=== PATIENT | female | born 1940 | race Caucasian/White ===

== ENCOUNTER → 2018-07-28 | Outpatient (REF) | payer MEDICARE, BC ==
[~2018-07-28] MED LIST: ACIDOPHILU4 PO; ALL DAY10 MG; AMILORIDE5 MG; AMOXICILLIN/CL875 MG OR; BABY ASPIRIN81 MG PO; CARISOPRODOL350 MG; CELEBREX200 MG PO; CRANBERRY1 TA1; DIFLUCAN150 MG PO; FIBER CON625 MG OR; FLONASE SPRAY50 MC1; FLOVENT HFA220 MCG; FLUZONE SPLT1 M1 IM; FOSAMAX70 MG PO; LEVOXYL125 MCG OR; MULTIVITAM10 OR; NYSTATIN TOP; NYSTATIN100000 M1 OR; OMEPRAZOLE20 MG PO; PEDI DRI EX; PREDNISONE10 MG PO; RECLAST5 MG/100 M; SINGULAIR; SINGULAIR PO; TAM75CAP OR; TRAMADL/APAP PO; VITAMIN D35000 UNI1 OR; ZETIA10 MG PO; [UNRECOGNIZED DRUG - OTHER] OR
[2018-07-28 10:15] LABS: HEMATOCRIT 43.4 % (37.0-47.0); IMMATURE GRANULOCYTES 0.9 % (0.0-5.0); MEAN CELL VOLUME 88.2 fL CALC (80.0-100.0); MEAN CORPUSCULAR HGB 28.5 pG CALC (26.0-32.0); MEAN CORPUSCULAR HGB CONC 32.3 g/L CALC (32.0-36.0); NEUT# 3.65 thou/uL (2.00-7.15); RED BLOOD COUNT 4.92 mill/uL (4.20-5.60); RED CELL DISTRI WIDTH 13.4 % (11.5-15.5)
[2018-07-28 11:51] LABS: ALBUMIN 3.9 g/dL (3.2-5.0); ALKALINE PHOSPHATASE 65 u/l (38-126); ANION GAP 13 (6-22 (CALC)); BILIRUBIN, TOTAL 0.7 mg/dL (0.0-1.4); BUN 13 mg/dL (8-23); BUN/CREATININE RATIO 14 (12-20 (CALC)); CALCULATED LDLCHOLESTEROL 127 mg/dL (62-129 (CALC)); CARBON DIOXIDE 28 mmol/l (22-30); CHLORIDE 103 mmol/l (95-108); CHOLESTEROL HDL RATIO 3.6 (<4.4 (CALC)); GFR 54 ML/MIN (>=60 (CALC)); GFR FOR AFR.AMER. > 60 ML/MIN (>=60 (CALC)); HDL CHOLESTEROL 55 mg/dL (>=40); POTASSIUM 4.3 mmol/l (3.5-5.1); SGOT/AST 22 u/l (9-36); SODIUM 140 mmol/l (137-146); TOTAL CHOLESTEROL 200 mg/dl (0-199); TOTAL PROTEIN 6.5 g/dL (6.3-8.2); TOTAL TRIGLYCERIDES 92 mg/dl (30-149); VLDL CHOLESTROL 18 mg/dl (0-48 (CALC))
[2018-07-28 12:06] LABS: TSH, 3RD GENERATION 1.79 uIU/mL (0.47 - 4.68)
== END | disposition home or self-care (01) ==
LOC: LAB 09:13
PROVIDERS: ATTEND Nurse Practitioner Family
DX: E03.9 Hypothyroidism, unspecified (principal); E78.49 Other hyperlipidemia; K21.9 Gastro-esophageal reflux disease without esophagitis

== ENCOUNTER → 2018-08-25 | Outpatient (REF) | payer MEDICARE, BC | END | disposition home or self-care (01) | LOC: DI 15:05 | PROVIDERS: ATTEND Nurse Practitioner Family | DX: R05 Cough (principal) ==